=== PATIENT | female | born 2000 | race Caucasian/White ===

== ENCOUNTER 2024-08-17 21:20 | Emergency (ER) | payer BC, SELFPAY ==
[2024-08-17 21:22] VITALS: BP 122/75
[2024-08-17 21:51] LABS: Hematocrit 36.1 % (37.0-47.0); Hemoglobin 12.2 g/dL (12.0-16.0); Mean Corp Hgb Conc. 33.8 g/dL (33.0-37.0); Mean Corpuscular Hgb 30.5 pg (27.0-31.0); Mean Corpuscular Volume 90.3 fL (81.0-99.0); Mean Platelet Volume 11.6 fL (7.4-10.4); Platelet Count 144 10^3/uL (130-400); Red Cell Dist. Width 11.9 % (11.5-14.5); White Blood Cell Count 12.2 10^3/uL (4.8-10.8)
[2024-08-17 21:56] LABS: HCG, Serum Qualitative Screen Negative
[2024-08-17 22:00] LABS: Blood Urea Nitrogen 7 mg/dl (7-17); Calcium 8.8 mg/dl (8.4-10.2); Carbon Dioxide 28 mmol/L (22-30); Chloride 107 mmol/L (98-107); Glucose 98 mg/dl (70-99); Sodium 141 mmol/L (135-145); eGFR > 60.00
[2024-08-17 22:12] LABS: Absolute Neutrophils -Man Diff 1.5 10^3/uL (1.4-6.5); Band Neutrophils 0 % (0-3); Eosinophils 2 % (0-6); Lymphocytes 46 % (20-51); Monocytes 3 % (2-9); Segmented Neutrophils 13 % (42-75)
[2024-08-17 22:13] LABS: Atypical Lymphocytes 36 %; Normal RBC Morphology Yes; Platelets Checked Yes; Total Cells Counted 100
[2024-08-17 22:48] VITALS: BP 112/75; BMI 20.8
[2024-08-17 23:06] LABS: Monotest Positive (Negative)
[2024-08-17 23:08] LABS: COVID-19 Antigen Negative (Negative)
--- NOTE | 2024-08-18 00:51 | ED.GENMED ---
History of Present Illness
General
Chief Complaint: Fatigue
Source: patient
Exam Limitations: none
Time Seen by Provider: 08/17/24 22:21
Nursing documentation reviewed up to this point in time: agreed with
History of Present Illness
History of Present Illness:
24-year-old female with history of eczema presents to the emergency department for evaluation of multiple complaints. Patient reports that for the past 5 or 6 days she has been experiencing severe general fatigue. She said she has had some
generalized myalgias/achiness. She said she has had some mild sore throat/throat pain. She said she has noticed intermittent pruritic rash�has been treated with Benadryl with some improvement. Came to the emergency room for assessment. She
denies any fever. Denies any chest pain or shortness of breath. Mild nausea but no vomiting or diarrhea. No abdominal pain. She is on her menstrual period.
Review of Systems
Review of Systems
All Other Systems: ROS reviewed and negative except as documented in HPI and ROS
Constitutional: Reports fatigue; Denies fever
EENT: Reports sore throat
Respiratory: Denies cough or trouble breathing
Cardiac: Denies chest pain
ABD/GI: Reports nausea; Denies abdominal pain, vomiting or diarrhea
: Denies flank pain
Musculoskeletal: Reports muscle pain, neck pain and back pain
Skin: Reports itching and rash
Neurological: Reports headache
Phy Exam
Physical Exam
Physical Exam:
General: Awake, alert, oriented x3; no acute distress
Head: Normocephalic, atraumatic
Eyes: Conjunctiva normal, EOMI
Throat: Airway intact, handling secretions, mild tonsillar erythema no exudate
Neck: Trachea midline, supple without meningismus, left greater than right cervical adenopathy appreciated
Lungs: Clear to auscultation bilaterally, no wheezing, rales, rhonchi
Heart: Regular rate and rhythm, no murmurs, gallops, or rubs
Abd: Soft, non distended, nontender
Neuro: No gross deficits
Skin: no rash noted on skin examination today
Extremities: No edema in extremities, equal pulses in all extremities
Scores
Heart Failure Risk
Heart Failure Risk Score: Not Applicable
Heart Score for Chest Pain Patients
STEMI patient?: Not applicable
Withdrawal Assessment of Alcohol
Withdrawal Assessment Completed?: Not applicable
Course
Orders/Labs/Results
Orders:
Orders
08/17/24 21:29
Test Result ONCE
08/17/24 21:38
Basic Metabolic Panel Urgent
Complete Blood Count/With Diff Urgent
HCG, Serum Qualitative Screen Urgent
Lyme Progressive Urgent
Comment: ADD ON
Manual Differential Urgent
Monotest Urgent
Comment: ADD ON
08/17/24 22:36
Add On- LAB Urgent
Tests Added?: lyme progressive and monotest
08/17/24 22:39
COVID-19 Antigen Urgent
Source: Nasal Swab
Influenza A+B Rapid Molecular Urgent
DAQAUN Source: Nasal Swab
Specimen Description:
Abnormal Lab Results
08/17/24
21:38
WBC 12.2 H 10^3/uL
(4.8-10.8)
RBC 4.00 L 10^6/uL
(4.20-5.40)
Hct 36.1 L %
(37.0-47.0)
MPV 11.6 H fL
(7.4-10.4)
Segmented Neutrophils 13 L %
(42-75)
Creatinine 0.5 L mg/dL
(0.6-1.0)
Monoscreen Positive A
(Negative)
08/17/24 21:38
08/17/24 21:38
Vital Signs
Initial and Last Documented VS:
Initial Vital Signs
Temp Pulse Resp BP Pulse Ox
37.3 C 97 18 122/75 98
08/17/24 21:22 08/17/24 21:22 08/17/24 21:22 08/17/24 21:22 08/17/24 21:22
Last Documented Vital Signs
Temp Pulse Resp BP Pulse Ox
37.3 C 90 14 112/75 97
08/17/24 21:22 08/17/24 22:48 08/17/24 22:48 08/17/24 22:48 08/17/24 22:48
MDM/Problems Addressed
Differential Diagnosis Includes:
Viral syndrome
MDM/Problems Addressed:
24-year-old female presents for evaluation of myalgias and fatigue associated with multiple other symptoms as described above. Ongoing for the past week or so. She is also having intermittent pruritic rash that she showed me a picture of the rash
when it flares up and it appears consistent with mild urticaria. Suspect that this is likely viral infection. She had some labs sent in triage including CBC which showed mild leukocytosis. CMP no clinically significant abnormalities. hCG
negative. Added Lyme's, Monospot, viral swabs.
Patient is positive for mono which I think accounts for her symptoms. Advised patient regarding supportive care, preventing spread. We spoke about precautions to prevent splenic injury. Spoke about return precautions. Stable for discharge.
*Pulse Oximetry
SaO2: 97
Oxygen Mode of Delivery: Room air
Patient hypoxic: no (97%)
*Critical Care Note
Total Time (30-74mins, 75-104mins- exclusive of procedures): Not Applicable
Data Reviewed
Source: patient
ED Attending Note
-
Portions of this chart may have been created with voice recognition software.� Occasional wrong word or��sound alike� substitutions may have occurred due to the inherent limitations of voice recognition software.
Discharge Plan
Departure
Patient Disposition: Home (Routine Discharge)
Date of Disposition: 08/17/24
Time of Disposition: 23:15
Patient with high blood pressure during this ER visit?: No
Discharge Problem:
Mononucleosis
Instructions: Mononucleosis
Prescriptions:
No Action
fexofenadine-pseudoephedrine [Cris-D 24 Hour] 180-240 mg Tablet Extended Release 24 Hr
1 tab PO DAILY
Referrals:
NONE,* [Family Provider, Internal Medicine]
Activity Restrictions/Additional Instructions:
Thank you for visiting the Emergency Department at [facility].
1. Please schedule a follow up appointment as directed. Call first thing tomorrow morning to make an appointment.
2. If indicated, please take your medications as instructed and indicated on discharge paperwork.
3. If any of your symptoms do not improve, or persist, or become more severe within 6-12 hours, please return to the emergency department for further care.
4. Please return to the emergency department if you develop a headache, neck pain/stiffness, fever greater than 100.4F, chest pain, shortness of breath, persistent nausea, vomiting, slurred speech, difficulty walking, numbness/tingling, weakness,
signs of infection or any other symptoms that are worrisome to you.
Please call [phone] if you have any questions.
Interventions
Interventions:
*Risk Screen - Suicide Last Done: 08/17/24 21:22
*General Assessment Last Done: 08/17/24 21:22
*Neglect/Abuse Screening Last Done: 08/17/24 21:22
*ED- Fall Risk Assessment Last Done: 08/17/24 21:22
*Nursing Disposition Last Done: 08/17/24 23:30
Discharge Date and Time
Discharge Date/Time: 08/17/24 23:30
Print Language: NIUEAN
[2024-08-19 14:02] LABS: Lyme Antibody Screen, EIA Presump. Positive (Negative)
== END 2024-08-17 23:30 | disposition home or self-care (01) ==
LOC: EMR 21:20
PROVIDERS: Emergency Medicine; EMERGENCY PHYSICIAN Emergency Medicine
DX: B27.90 Infectious mononucleosis, unspecified without complication (principal); Z11.52 Encounter for screening for COVID-19
CPT/HCPCS: 99283; 80048; 84703; 85025; 86308; 86617; 86618; 87502; 87811